=== PATIENT | male | born 1995 | race Caucasian/White ===

== ENCOUNTER 2016-08-06 11:28 | Emergency (ER) | payer OTHER ==
[~2016-08-06 11:28] MED LIST: ALBUTEROL17 GM INH; ATARAX PO; AZITHROMYCIN250 MG PO; BACITRACIN30 GM TOP; CARAFATE1 G; CLEOCIN PO; DESYREL150 M1 PO; KLONOPIN0.5 MG PO; KLONOPIN1 MG PO; LEXAPRO PO; LEXAPRO5 MG PO; LORTAB 10-5001 EACH PO; NAPROSYN500 MG PO; NAPROXEN PO; NO MEDICATIONS; OMNICEF PO; PHENERGAN25 MG PO; PREDNISONE50 MG PO; PREVACID PO; REGLAN10 MG; STRATTERA PO; VISTARIL50 MG PO; VOLTAREN75 MG PO; [UNRECOGNIZED DRUG - OTHER] INH
[2016-09-15] MEDS ORDERED: ALBUTEROL17 GM INH (10:34)
== END 2016-08-06 12:04 | disposition home or self-care (01) ==
LOC: SED 11:28
DX: K64.4 Residual hemorrhoidal skin tags (principal); F17.210 Nicotine dependence, cigarettes, uncomplicated; Z90.49 Acquired absence of other specified parts of digestive tract
CPT/HCPCS: 99282

== ENCOUNTER → 2016-09-20 | Day surgery (SDC) | payer OTHER ==
--- NOTE | ~2016-09-20 | OR ---
Unit #: [id number] #: [id number] Patient: DELORIS KNIGHT [id number] [address] [place], [place] [address] [id number] MR#: [id number] NAME: DELORIS KNIGHT ROOM: Date of Procedure: 09/20/2016 Admission Date: 09/20/2016 Surgeon: Tommy Vicente Jr., M.D. : 1995 Attending Physician: Tommy Vicente Jr., M.D. Primary Care Physician: Stephenie Sellers M.D. OPERATIVE REPORT INDICATIONS FOR PROCEDURE The patient is a 21-year-old white male, who has been having intermittent prolapsing bleeding hemorrhoids. He has tried medical conservative treatment without success and is brought in at this time at his request for hemorrhoidal stapling with mucosectomy. The patient understands the procedure including the risks, including that of bleeding and infection and consents. PREOPERATIVE DIAGNOSIS Bleeding prolapsing internal hemorrhoids. POSTOPERATIVE DIAGNOSIS Bleeding prolapsing internal hemorrhoids noting large dilated internal hemorrhoids. ANESTHESIA General with LMA and 0.5% Marcaine with epinephrine locally. PROCEDURE PERFORMED Hemorrhoidal stapling with mucosectomy. DESCRIPTION OF PROCEDURE The patient was positioned in supine position. After being anesthetized and intubated, was placed in prone position, prepped and draped in routine fashion for hemorrhoidal stapling. Four-quadrant anal block was performed with 0.5% Marcaine with epinephrine and a 4-finger anal dilatation performed. The retracting device of the anal canal was then placed and sutured in place with 2-0 silk sutures. The internal retracting device was placed and 0 Prolene pursestring was placed circumferentially as routine. An additional stitch was placed at the 6 o'clock position, and the stapler was then placed. The pursestring tied around the stem of the stapler was closed, fired, and removed with an excellent portion of the submucosa being removed along with it. Staple line was checked. There was one small area of bleeding which was controlled with a [id number] 3-0 Vicryl suture. The staple line was then again watched for over 5 minutes with no evidence of any further bleeding. The retracting device was removed and anal canal packed with Gelfoam soaked with viscous Xylocaine. Sterile dressings were applied externally. Estimated blood loss minimal, less than 10 mL. The patient received less than 1000 mL crystalloid solution during the procedure. Sponges and instrument counts were correct x3. No drains were used. No complications. The patient was taken to the recovery room with stable vital signs in satisfactory Unit #: [id number] #: [id number] Patient: DELORIS KNIGHT condition. Dictated by... Tommy Vicente Jr., Elizabeth PALOMINO/suzie TD: 09/20/2016 11:15 JOB #: [id number] OPERATIVE REPORT Page 1 of 1 X Tommy Vicente MD X PROCEDURE OPERATIVE NOTE
== END | disposition home or self-care (01) ==
LOC: CSUR 06:12
DX: K64.8 Other hemorrhoids (principal); J45.909 Unspecified asthma, uncomplicated; F17.210 Nicotine dependence, cigarettes, uncomplicated; Z87.01 Personal history of pneumonia (recurrent); Z88.0 Allergy status to penicillin; Z88.1 Allergy status to other antibiotic agents; Z88.8 Allergy status to other drugs, medicaments and biological substances; Z79.899 Other long term (current) drug therapy; Z90.49 Acquired absence of other specified parts of digestive tract; Z98.890 Other specified postprocedural states
CPT/HCPCS: 88304; J1100; J1885; J2250; J2765; J3010